=== PATIENT | female | born 1945 | race Caucasian/White ===

== ENCOUNTER → 2021-04-08 | Outpatient (CLI) | payer MEDICARE, OTHER ==
[2021-04-08 13:59] LABS: BASO # 0.1 10^3/uL (0.0-0.2); BASO % 0.9 % (0.0-1.0); EOS # 0.3 10^3/uL (0.0-0.5); EOS % 3.9 % (0.0-3.0); HEMATOCRIT 40.1 % (36.0-47.0); HEMOGLOBIN 13.5 g/dl (12.0-15.5); LYMPH # 3.1 10^3/uL (1.5-5.0); LYMPH % 41.2 % (24.0-44.0); MEAN CORPUSCULAR HEMOGLOBIN 31.4 pg (27.0-33.0); MEAN CORPUSCULAR HGB CONC 33.7 g/dl (32.0-36.5); MEAN CORPUSCULAR VOLUME 93.3 fl (80.0-96.0); MONO # 0.9 10^3/uL (0.0-0.8); MONO % 11.8 % (2.0-8.0); NEUTROPHILS # 3.2 10^3/uL (1.5-8.5); NEUTROPHILS % 41.7 % (36.0-66.0); PLATELET COUNT, AUTOMATED 254 10^3/uL (150-450); WHITE BLOOD COUNT 7.6 10^3/uL (4.0-10.0)
[2021-04-08 14:23] LABS: BLOOD UREA NITROGEN 13 MG/DL (7-18); CALCIUM LEVEL 8.9 MG/DL (8.8-10.2); CARBON DIOXIDE LEVEL 24 MEQ/L (21-32); CHLORIDE LEVEL 107 MEQ/L (98-107); CREATININE FOR GFR 0.67 MG/DL (0.55-1.30); GLOMERULAR FILTRATION RATE > 60.0 (>39); GLUCOSE, FASTING 90 MG/DL (70-100); NT-PRO BNP 127 PG/ML (<125); POTASSIUM SERUM 4.1 MEQ/L (3.5-5.1); SODIUM LEVEL 137 MEQ/L (136-145)
== END ==
LOC: M WUC 11:56
PROVIDERS: ATTEND Nurse Practitioner
DX: J44.9 Chronic obstructive pulmonary disease, unspecified (principal); R06.00 Dyspnea, unspecified; I10 Essential (primary) hypertension

== ENCOUNTER 2021-07-11 21:14 | Emergency (ER) | payer MEDICARE, OTHER ==
[~2021-07-11] VITALS: Ht 157.5 cm; Wt 61.4 kg
[2021-07-11 21:15] VITALS: BP 162/74
[2021-07-11] MEDS ORDERED: FLUTISP INH (21:33)
[2021-07-11] MEDS ORDERED: ALBU8.5H INH (21:33)
[2021-07-11] MEDS ORDERED: FLUO20CA22 PO (21:36)
[2021-07-11] MEDS ORDERED: ATOR40TA75 PO (21:36)
[2021-07-11] MEDS ORDERED: VERA240T3 PO (21:36)
[2021-07-11] MEDS ORDERED: LIDOCAINE 1% MDV 20ML VIAL SC ONE (22:00)
[2021-07-11] MEDS ORDERED: BOOSTRIX/ADACEL VACCINE (DIPHTH/PERTUSS/ACELL/TETANUS) 0.5ML SYR IM ONE (22:15)
--- NOTE | 2021-07-11 23:09 | REPVR ---
PROCEDURE INFORMATION: Exam: XR Left Elbow Exam date and time: 07/11/2021 10:18 PM Age: 75 years old Clinical indication: Trauma TECHNIQUE: Imaging protocol: XR Left elbow. Views: 3 or more views. COMPARISON: No relevant prior studies available. FINDINGS: Bones/joints: No fracture, dislocation, or bony destructive changes are noted involving the left elbow. The joint spaces and alignment of the left elbow are maintained. No left elbow joint effusion is seen. There is osseous spurring from the lateral humeral epicondyle. Soft tissues: There is a soft tissue laceration along the posterior aspect of the left elbow with small associated calcific densities in the wound. IMPRESSION: 1. Soft tissue laceration along the posterior aspect of the left elbow with small associated calcific densities in the wound. 2. No fracture or dislocation of the left elbow. Electronically signed by: Carlos Mccall On 07/11/2021 23:09:27 PM
== END 2021-07-11 23:36 | disposition home or self-care (01) ==
LOC: M ED 21:14
DX: S51.012A Laceration without foreign body of left elbow, initial encounter (principal); W01.10XA Fall on same level from slipping, tripping and stumbling with subsequent striking against unspecified object, initial encounter; Y92.9 Unspecified place or not applicable; Y93.9 Activity, unspecified; Y99.9 Unspecified external cause status; I25.10 Atherosclerotic heart disease of native coronary artery without angina pectoris; J44.9 Chronic obstructive pulmonary disease, unspecified; G47.33 Obstructive sleep apnea (adult) (pediatric); Z79.899 Other long term (current) drug therapy

== ENCOUNTER → 2021-07-23 | Outpatient (CLI) | payer MEDICARE, OTHER ==
[~2021-07-23] MED LIST: ALBU8.5H INH; ATOR40TA75 PO; FLUO20CA22 PO; FLUTISP INH; VERA240T3 PO
--- NOTE | 2021-07-23 13:46 | REP ---
INDICATION: PAIN. COMPARISON: 07/11/2021 TECHNIQUE: Four views FINDINGS: There is posterior soft tissue swelling. The abnormal posterior skin lucency seen on the prior exam consistent with a large laceration has significantly diminished in size. Persistent soft tissue radiodensities are noted. There is no significant change in appearance of the osseous structures. There is no evidence of a fracture or joint effusion. IMPRESSION: As above <Electronically signed by Kale Priest > 07/23/21 [id number]
== END ==
LOC: M WUC 13:05
PROVIDERS: ATTEND Physician Assistant
DX: M25.522 Pain in left elbow (principal)

== ENCOUNTER → 2025-08-16 | Outpatient (CLI) | payer MEDICARE, OTHER ==
[~2025-08-16] MED LIST changes: +ACET-683 PO; +AMLO-751 PO; +ATEN25TA PO; +BACI1CAP PO; +CEPH500C PO; +CEPH500T PO; +FERR1TAB8 PO; +FLUO-365 PO; -FLUO20CA22 PO; +FLUT1BLS8 INH; -FLUTISP INH; +FLUTISP NARES; +OXYB10TA23 PO; +PANT40TA29 PO; +PERC5TAB12 PO; +TRAM50TA2 PO; -VERA240T3 PO; +VERA240T64 PO; +VITA500C24 PO
[2025-08-16 17:57] LABS: BASO # 0.1 10^3/uL (0.0-0.2); BASO % 0.6 % (0.0-1.0); EOS # 0.1 10^3/uL (0.0-0.5); EOS % 1.7 % (0.0-3.0); LYMPH # 2.1 10^3/uL (1.5-5.0); LYMPH % 26.1 % (24.0-44.0); MONO # 0.8 10^3/uL (0.0-0.8); MONO % 9.9 % (2.0-8.0); NEUTROPHILS # 4.9 10^3/uL (1.5-8.5); NEUTROPHILS % 61.0 % (36.0-66.0); PLATELET COUNT, AUTOMATED 298 10^3/uL (150-450)
[2025-08-16 17:58] LABS: IRON (FE) 144.0 UG/DL (50-170); PERCENT SATURATION 39.8 % (13.2-45.0)
== END ==
LOC: M WUC 14:59
PROVIDERS: ATTEND Family Medicine
DX: D64.9 Anemia, unspecified (principal)